=== PATIENT | female | born 1990 | race Caucasian/White ===

== ENCOUNTER 2017-05-14 22:03 | Emergency (ER) | payer SELFPAY ==
[2017-05-14 22:12] VITALS: BP 129/77; PULSE 79; RESP 20; TEMP 97.6; O2SAT 97
[2017-05-14] MEDS ORDERED: Amoxicillin-Clav 875-125 mg Tab PO STA (22:49)
--- NOTE | 2017-05-14 22:51 | C.PDOC ---
History Of Present Illness 27 y/o female presents to the ED for evaluation of nasal congestion, sore throat , and dry cough which began around 4 days ago. Patient developed right ear pain today and decided to clean her ear with a Q-tip. Patient states a piece of the cotton at one end of the Q-tip broke into her ear and is now stuck inside. She then tried to irrigate her ear with water. Patient now reports she cannot hear from her right ear due to the water and impaction. Patient denies fever, chills , shortness of breath, wheezing. Time Seen by Provider: 05/14/17 22:44 Chief Complaint (Nursing): ENT Problem History Per: Patient History/Exam Limitations: None Onset/Duration Of Symptoms: Days (4) Current Symptoms Are (Timing): Still Present Quality (Ear): Foreign Body (cotton from q-tip ) Past Medical History Reviewed: Historical Data, Nursing Documentation, Vital Signs Vital Signs: Last Vital Signs Temp 97.6 F 05/14/17 22:05 Pulse 79 05/14/17 22:05 Resp 20 05/14/17 22:05 BP 129/77 05/14/17 22:05 Pulse Ox 97 05/15/17 00:12 - Medical History PMH: No Chronic Diseases Surgical History: No Surg Hx Family History: States: Unknown Family Hx - Social History Hx Alcohol Use: No Hx Substance Use: No - Immunization History Hx Tetanus Toxoid Vaccination: No Hx Influenza Vaccination: No Hx Pneumococcal Vaccination: No Review Of Systems Constitutional: Negative for: Fever, Chills ENT: Positive for: Ear Pain (right, positive foreign body ), Nose Congestion, Throat Pain Respiratory: Positive for: Cough. Negative for: Shortness of Breath, Sputum, Wheezing Physical Exam - Physical Exam Appears: Well, Non-toxic, No Acute Distress Skin: Normal Color, Warm, Dry, No Rash Eye(s): bilateral: PERRL Ear(s): Left: Normal, Right: TM Erythema, Other ((+)ear canal FB c/w cotton ball.) Nose: No Flaring, No Discharge Oral Mucosa: Moist, No Drooling Tongue: Normal Appearing Lips: Normal Appearing Throat: Erythema (mod B/L), No Exudate, No Drooling, Other (uvula midlihe, no edema.) Neck: Supple Cardiovascular: Rhythm Regular Respiratory: No Decreased Breath Sounds, No Accessory Muscle Use, No Stridor, No Wheezing Gastrointestinal/Abdominal: Soft, No Tenderness Extremity: No Pedal Edema Neurological/Psych: Oriented x3, Normal Speech ED Course And Treatment O2 Sat by Pulse Oximetry: 97 (on RA) Pulse Ox Interpretation: Normal Progress Note: Patient received Augmentin PO, Motrin PO, and Prednisone PO. On re-eavl, pt is afebrile, hemodynamicaly stable. Non-toxic. Tolerate Po well in ED. PulseOx 97% RA. ENT: Right ear: FB removed w/assistance of aligator forceps without difficulty. On re-eval: mild ear canal edema and erythema, no discharges. TM (+)fluid level. Left ear: normal exam. Pharyngs mod pharyngeal erythema, mild edema. no exudate. Uvula midline, no edema. Neck: Supple, (-) meningeal sign. Lungs: CTA B/L, BS equal B/L. Neuorlogicaly intact. Pt has clinical findings c/w Right ear FB s/p removal, otitis media, acute pharyngitis. Pt advised on course of ds. ref. to f/u with PMD, ENT IN 2-3 days for re-eval. return to ED if any worsening or new changes. Disposition Counseled Patient/Family Regarding: Diagnosis, Need For Followup, Rx Given - Disposition Referrals: [facility] [Outside] David Padilla MD [Staff Provider] - Disposition: HOME/ ROUTINE Disposition Time: 22:49 Condition: STABLE Additional Instructions: Take medication as prescribed Encourage fluids Keep ear dry, clean, avoid water exposure Follow up with PMD and ENT In 2-3 days for re-evaluation. Return to ED if any worsening or new changes. Prescriptions: Amoxicillin/Clavulanate [Augmentin 875 MG-125 MG] 1 tab PO BID #14 tab Prednisone [Deltasone] 20 mg PO DAILY #3 tablet Instructions: Pharyngitis (ED), Serous Otitis Media (ED) Forms: [facility] ([place]) - Clinical Impression Clinical Impression: Otitis media, Pharyngitis - PA / FOOD HANDLER / Resident Statement MD/DO has reviewed & agrees with the documentation as recorded. - Scribe Statement The provider has reviewed the documentation as recorded by the Scribe (Sharon Mchugh) All medical record entries made by the Scribe were at my direction and personally dictated by me. I have reviewed the chart and agree that the record accurately reflects my personal performance of the history, physical exam, medical decision making, and the department course for this patient. I have also personally directed, reviewed, and agree with the discharge instructions and disposition.
[2017-05-14] MEDS ORDERED: Amoxicillin-Clav 875-125 mg Tab PO ONE (22:55)
== END 2017-05-14 23:02 | disposition home or self-care (01) ==
LOC: C.ER 22:03
DX: H66.91 Otitis media, unspecified, right ear (principal); J02.9 Acute pharyngitis, unspecified